=== PATIENT | female | born 1945 | race Caucasian/White ===

== ENCOUNTER 2025-02-03 12:37 | Outpatient (CLI) | payer MEDICARE, SELFPAY ==
--- NOTE | 2025-02-03 12:42 | MR_ITS ---
FINAL REPORT CLINICAL HISTORY: BILAT LOW BACK PAIN W/OUT SCIATICA. BILATERAL HIP PAIN FINDINGS: Multiplanar MR imaging of the lumbar spine was performed without contrast. On the sagittal T2-weighted images, there is abnormal decreased signal at multiple levels. The vertebrae are of normal height. The vertebral alignment is normal. L1-2: There is no significant canal stenosis or neural foraminal narrowing. L2-3: Moderate diffuse disc bulge with moderate bilateral neuroforaminal narrowing. L3-4: Moderate diffuse disc bulge. Mild spinal and moderate bilateral neuroforaminal narrowing. L4-5: Large diffuse disc bulge. Posterolateral disc protrusions. High-grade spinal canal compromise. Moderate to high-grade bilateral neuroforaminal narrowing and bilateral lateral recess stenosis. L5-S1: Mild diffuse disc bulge with moderate right and mild left neuroforaminal narrowing. IMPRESSION: Multilevel degenerative disc disease, most pronounced at L4-5 as detailed above. Reviewed, Interpreted and Dictated by Jt Mathur MD Transcribed by Evelia Jensen Authenticated and . [facility]
== END 2025-02-03 23:59 | disposition home or self-care (01) ==
LOC: RAD 12:39
PROVIDERS: PCP Physician Assistant Medical; Visit Provider Physician Assistant Medical
DX: M51.369 Other intervertebral disc degeneration, lumbar region without mention of lumbar back pain or lower extremity pain (principal); G89.29 Other chronic pain
CPT/HCPCS: 72148